=== PATIENT | male | born 1950 | race Caucasian/White ===

== ENCOUNTER 2021-03-06 15:02 | Observation (INO) | payer MEDICARE, SELFPAY ==
[2021-03-06] VITALS (7 sets, daily range): BP systolic 169–196; BP diastolic 97–126; PULSE 58–65; RESP 15–30; TEMP 36.4–37; O2SAT 95–100; BMI 23.5; BMI 21.7
--- NOTE | 2021-03-06 15:05 | EKG12_ITS ---
Test Reason : CP Blood Pressure : / mmHG Vent. Rate : 059 BPM Atrial Rate : 059 BPM P-R Int : 166 ms QRS Dur : 090 ms QT Int : 448 ms P-R-T Axes : 064 -53 -28 degrees QTc Int : 443 ms Sinus bradycardia with occasional Premature ventricular complexes Left anterior fascicular block Nonspecific T wave abnormality Abnormal ECG Confirmed by JAYDE SEWELL, TAMIKO ([id number]), editor map MICHAEL EDOUARD ([id number]) on 03/09/2021 9:21:53 AM Referred By: JENA Confirmed By:NATE DONOHUE MD
[2021-03-06] MEDS: Aspirin 81 MG TAB.CHEW 324 MG PO (15:13)
--- NOTE | 2021-03-06 15:15 | RAD_ITS ---
STUDY: X-RAY CHEST REASON FOR EXAM: Male, 70 years old. Chest pain TECHNIQUE: Single AP portable view of the chest. COMPARISON: None. FINDINGS: EKG electrodes are seen. Hyperinflation. The lungs are clear. There is no demonstrated pleural abnormality. Normal size heart. Normal mediastinum and amanda. Normal visualized pulmonary arteries. There is atherosclerotic tortuosity of the aortic arch and descending thoracic aorta. There are diffuse degenerative changes of the visualized thoracic spine. Dextroscoliosis. There is degenerative osteoarthritis of the bilateral shoulders. There is no demonstrated abnormality of the visualized soft tissue structures of the upper abdomen. RAD/Chest 1 View (Portable) IMPRESSION: Hyperinflation. The lungs are clear. Electronically Signed: Juan Mike MD at 15:34 EDT , Service support ,
[2021-03-06 15:30] LABS: Absolute Lymphocyte Count 3.39 X10^3/uL (0.83-4.51); Absolute Neutrophil Count 2.6 X10^3/uL (2.0-7.7); Basophil# 0.06 X10^3/uL; Basophil% 0.8 % (0-1); Eosinophil# 0.44 X10^3/uL; Eosinophils% 6.1 % (0-5); Hematocrit 41.6 % (40-54); Hemoglobin 13.6 g/dL (13.0-16.5); Lymphocyte # 3.39 X10^3/ul (0.83-4.51); Lymphocyte % 47.2 % (19-41); Mean Corp Hgb Conc 32.7 g/dL (32-36); Mean Corpuscular Hgb 30.2 pg (27.0-32.0); Mean Corpuscular Volume 92.4 fL (80-94); Monocyte# 0.73 X10^3/uL; Monocyte% 10.2 % (0-10); NRBC Flagged by Analyzer 0 % (0-5); Neutrophil # 2.55 X10^3/uL (2.7-7.7); Neutrophil % 35.6 % (47-70); Platelet Count 268 K/mm3 (150-450); RBC Distribution Width CV 14.1 % (11.6-14.6); RBC Distribution Width SD 48.1 fl (35.1-43.9); White Blood Count 7.2 K/mm3 (4.4-11.0)
[2021-03-06 15:51] LABS: Anion Gap 6 (5-15); BUN 17 mg/dL (7-18); BUN/Creat Ratio 24.5 RATIO (10-20); Calcium,Total 9.3 mg/dL (8.5-10.1); Chloride 105 mmol/L (98-107); Creatinine, Serum 0.69 mg/dL (0.70-1.30); EST Glomerular Filtration Rate 119 mL/min (>60); Est Glom Filt Rate - Afr Amer 144 mL/min (>60); Estimated Creatinine Clearance 60.26 ml/min; Glucose 95 mg/dL (74-106); Potassium 3.8 mmol/L (3.5-5.1); Sodium Level 138 mmol/L (136-145); Troponin-I HS 9.1 pg/mL (3.0-78.5)
--- NOTE | 2021-03-06 16:30 | EX.ED.DYSGE1 ---
HPI History of Present Illness Chief Complaint: Chest Pain Narrative Narrative: 70-year-old male presenting with epigastric pain which has been constant for 3 days. Patient states is worse with drinking and eating food. He feels like it is in his epigastric region and radiates up into his throat. Patient denies any medical problems. He has no history of GERD that he relates in the past. Patient has not had fever, chills. He denies chest pain or shortness of breath. He states he has been taking a lot of aspirin because he is scared it was his heart. He denies any cardiac issues. Patient states he is on no medications at home and is otherwise healthy [facility] Medical History COPD (chronic obstructive pulmonary disease) Allergy/AdvReac Type Severity Reaction Status Date / Time No Known Allergies Allergy Verified 03/06/21 15:07 Social History Smoking Status: Former smoker ROS ROS ED Constitutional Constitutional ED: Denies chills or fever(s) Eyes Eyes: Denies blurry vision or change in vision ENT ENT ED: Denies rhinorrhea or sore throat Cardiovascular Cardiovascular: Denies chest pain or palpitations Respiratory/Chest Respiratory/Chest: Denies cough, dyspnea or sputum Gastrointestinal Gastrointestinal: Reports other Details: Epigastric pain ; Denies diarrhea, nausea or vomiting Genitourinary Genitourinary ED: Denies dysuria Musculoskeletal Musculoskeletal: Denies arthralgias or myalgias Integumentary Denies rash Neurologic Neurologic: Denies headache(s) or paresthesias Psychiatric Psychiatric: Denies anxiety or depression EXAM Physical Exam Const Vital Signs: 03/06/21 15:03 03/06/21 15:07 Temperature 97.6 F L Temperature Source Oral Pulse Rate 58 L Respiratory Rate 22 H Blood Pressure 169/126 H Blood Pressure Mean 140 Pulse Ox 100 100 Oxygen Delivery Method Room Air Room Air Negative for well nourished General Appearance ED: NAD HEENT Reports moist mucous membranes trauma Eyes PERRL and EOMs intact bilaterally General Eye ED: Negative for pale conjunctiva or scleral icterus Chest Wall inspection of chest normal and palpation of chest normal Resp normal respiratory effort and clear to auscultation bilaterally Cardio regular rate and regular rhythm GI Palpation: tender Neuro oriented x3 and CN's II-XII intact bilaterally Sensorium / Orientation: alert Psych mental status grossly normal Skin no rashes or lesions noted and no wounds MDM MDM MDM Narrative Medical decision making narrative: Patient presenting with 3 days of epigastric pain. He has no chest pain. He denies any cardiac history. He states that his pain is worse with eating and drinking and he describes dyspepsia. His EKG is sinus rhythm with a ventricular rate of 59 bpm with occasional PVCs on my interpretation. Chest x-ray on my interpretation shows no acute cardiopulmonary process and the radiologist does agree. Given the patient has had 3 days of the symptoms with a negative troponin at 9.1 I do not believe he needs a delta troponin. Patient will be given a GI cocktail to see if this helps his symptoms. Patient did have GI cocktail but states it came back up. He denies nausea but states he does have difficulty swallowing it when he hit his stomach. He request something for pain. I did order him morphine and Zofran. Patient will be signed out to incoming ED physician for follow-up to see if he is improved. If he is not improving he may need imaging done. This was discussed with incoming ED physician. Impression: 1. Epigastric pain Lab Data Attestation: I reviewed the patient's lab results. Labs: Laboratory Results - last 24 hr 03/06/21 03/06/21 03/06/21 14:50 14:50 14:50 WBC 7.2 RBC 4.50 L Hgb 13.6 Hct 41.6 MCV 92.4 MCH 30.2 MCHC 32.7 RDW Std Deviation 48.1 H RDW Coeff of Emiliano 14.1 Plt Count 268 MPV 9.0 Immature Gran % (Auto) 0.100 Neut % (Auto) 35.6 L Lymph % (Auto) 47.2 H [place] % (Auto) 10.2 H Eos % (Auto) 6.1 H Baso % (Auto) 0.8 Absolute Neuts (auto) 2.6 Absolute Lymphs (auto) 3.39 Nucleated RBC % 0 Sodium 138 Potassium 3.8 Chloride 105 Carbon Dioxide 27.0 Anion Gap 6 BUN 17 Creatinine 0.69 L Estim Creat Clear Calc 60.26 Est GFR (MDRD) Af Amer 144 Est GFR (MDRD) Non-Af 119 BUN/Creatinine Ratio 24.5 H Glucose 95 Calcium 9.3 Total Bilirubin 0.70 Direct Bilirubin 0.22 AST 31 ALT 39 Alkaline Phosphatase 119 H Troponin I High Sens 9.1 Total Protein 8.0 Albumin 3.8 Globulin 4.2 Lipase 03/06/21 14:50 WBC RBC Hgb Hct MCV MCH MCHC RDW Std Deviation RDW Coeff of Emiliano Plt Count MPV Immature Gran % (Auto) Neut % (Auto) Lymph % (Auto) [place] % (Auto) Eos % (Auto) Baso % (Auto) Absolute Neuts (auto) Absolute Lymphs (auto) Nucleated RBC % Sodium Potassium Chloride Carbon Dioxide Anion Gap BUN Creatinine Estim Creat Clear Calc Est GFR (MDRD) Af Amer Est GFR (MDRD) Non-Af BUN/Creatinine Ratio Glucose Calcium Total Bilirubin Direct Bilirubin AST ALT Alkaline Phosphatase Troponin I High Sens Total Protein Albumin Globulin Lipase 81 Radiography Diagnostic Testing: Radiology Impression Chest X-Ray 03/06/21 15:15 IMPRESSION: Hyperinflation. The lungs are clear. Electronically Signed: Juan Mike MD at 15:34 EDT , Service support , Discharge Plan Triage Chief Complaint: Chest Pain ED Provider: Fan King Dx/Rx/DC Orders Instructions: ED Epigastric Pain Uncertain Cause Primary Care Provider: Care Physician,No Primary Referrals: Nory Treviño MD [STAFF PHYSICIAN] - As soon as possible Care Physician,No Primary [Primary Care Provider] - Disposition Disposition: Home, Self Care
[2021-03-06] MEDS: Mag Hydrox/Al Hydrox/Simeth 30 ML UDC PO (16:40)
[2021-03-06 17:09] LABS: Lipase 81 U/L (73-393)
[2021-03-06 17:29] LABS: AST(SGOT) 31 U/L (15-37); Alanine Aminotransfer ALT/SGPT 39 U/L (16-61); Albumin, Serum 3.8 g/dL (3.2-5.0); Alkaline Phosphatase 119 U/L (45-117); Bilirubin, Direct 0.22 mg/dL (0.00-0.30); Globulin 4.2 g/dL (2.2-4.2)
[2021-03-06] MEDS: Ondansetron 4 MG/2 ML Vial IV (18:21)
[2021-03-06] MEDS: Morphine 4 MG/ML Syringe IV (18:21)
--- NOTE | 2021-03-06 19:09 | CT_ITS ---
STUDY: CT CHEST, ABDOMEN T PELVIS WITH CONTRAST REASON FOR EXAM: Male, 70 years old. Epigastric pain, difficulty swallowing, into back RADIATION DOSAGE (If Supplied By Facility): CTDIvol = ( 10.23 ) mGy, DLP = ( 1062.41 ) mGycm TECHNIQUE: Transaxial imaging was performed following intravenous administration of Oral and amp; IV Gastrografin and amp; 100mL Isovue-300. Individualized dose optimization techniques were used for this CT. COMPARISON: No relevant priors. FINDINGS: CHEST The lungs are normal. There is no demonstrated pleural abnormality. Cardiac and calcific coronary artery disease. Ascending aorta measures 4.2 cm. Normal mediastinum. Normal hilar regions. Normal unenhanced pulmonary arteries. Normal aorta arch and descending thoracic aorta. Normal osseous structures. Multiple simple hepatic cysts. ABDOMEN The visualized lung bases are unremarkable. The visualized portions of the heart are within normal limits. Multiple simple hepatic cysts measuring up to 13 mm. Normal gallbladder and extrahepatic biliary system. Normal spleen. Normal pancreas. Normal bilateral adrenal glands. Normal right kidney. Normal left kidney. Normal visualized stomach. Multiple air-fluid levels throughout the small and large bowel. Normal colon. The appendix is visualized and appears normal. Outside plaque along the aorta and its branches. Normal inferior vena cava. Normal retroperitoneum. Normal abdominal wall. Moderate scoliosis. Moderate spondylosis. PELVIS Normal urinary bladder. Normal visualized small intestine. Normal visualized colon. There is no pelvic fluid. There is no pelvic lymphadenopathy or mass lesion. Normal visualized pelvic arteries. Normal abdominal wall. Normal osseous structures. 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 Cardiomegaly and coronary artery disease. Ileus. Electronically Signed: Slava Garrison MD at 21:47 EDT , Service support ,
--- NOTE | 2021-03-06 23:00 | HP.PCM.HOS_ITS ---
HPI - General HPI Narrative JACKELIN MAYFIELD, is a 70 M with history of chronic smoking possible COPD came to ER for back pain/chest pain for 3 days. This started in the upper back, intrascapular space, then epigastric region and he feels sometimes food getting stuck in the mid chest near the spine, sometimes radiation to the right throa t/jaw. Sometimes he also feels the pain cuts of the wind, and short of breath. He feels short of breath on lying down feeling of could not breathe in supine position. The pain is persistent and constant, first-time, never happened before. He never had stress test or cardiac cath, PFT, EGD or colonoscopy. The patient is new to our system therefore never had EKG before. Twelve-lead EKG shows s inus bradycardia at 59, with occasional PVCs, LAFB, nonspecific ST-T changes. CTA chest and abdomen was done in ER and shows a incidental finding of ascending aorta 4.2 cm aneurysm. ER physician discussed with the cardiology Dr. Jones, it seems incidental finding not related with his current chest pain. Normal mediastinum, hilar region. Lungs normal. Blood pressure is elevated 196/105, heart rate 61/min. First troponin negative. Allergy to milligram IV 1 dose given. His mother had coronary artery disease at the age of 65 and her sister had COPD. The patient is a chronic smoker, smokes 2 pack/day since teenage, states he quit 3 days ago [facility] Medical History COPD (chronic obstructive pulmonary disease) Home Medications ipratropium-albuterol 1 ml INHALATION 4X/DAY PRN PRN 03/06/21 [History Last Taken Unknown] Allergy/AdvReac Type Severity Reaction Status Date / Time No Known Allergies Allergy Verified 03/06/21 15:07 Family History (Updated 03/06/21 @ 23:[address] Anand Pérez MD) Mother CAD (coronary artery disease) Social History Smoking Status: Former smoker ROS ROS Narrative Constitutional: Reports fatigue and weakness HEENT: Reports systems reviewed and no addt'l complaints, except as documented Respiratory/Chest: As mentioned in HPI Gastrointestinal: No nausea, vomiting. Possible dysphagia. Denies coffee ground emesis, hematemesis or vomiting Genitourinary: Denies burning urination or new urinary tract symptoms Musculoskeletal: Reports joint pain and limited range of motion Neurologic: Denies seizure-like activity skin: No ulcer. No rash Endocrinology: Reports systems reviewed and no addt'l complaints, except as documented Hematologic/Lymphatic: Reports systems reviewed and no addt'l complaints, except as documented Rest 12 ROS are negative except as mentioned in HPI Vital Signs Vital Signs Vital Signs: 03/06/21 15:03 03/06/21 15:07 03/06/21 18:47 Temperature 97.6 F L Temperature Source Oral Pulse Rate 58 L 61 Respiratory Rate 22 H 16 Blood Pressure 169/126 H 176/97 H Blood Pressure Mean 140 123 Pulse Ox 100 100 100 Oxygen Delivery Method Room Air Room Air Room Air 03/06/21 20:18 03/06/21 22:10 Temperature Temperature Source Pulse Rate 65 58 L Respiratory Rate 15 20 H Blood Pressure 190/98 H 184/97 H Blood Pressure Mean 128 126 Pulse Ox 95 Oxygen Delivery Method Room Air Weight Weight: 145 lb 8.081 oz Body Mass Index (BMI) 23.5 Physical Exam Narrative General: Alert, Oriented x3, Cooperative HEENT: Atraumatic, PERRLA, EOMI, Normocephalic Oral: No Gingival or Mucosal Lesions/ Ulcerations Neck: Supple, No JVD, Negative Carotid Bruits Lungs: Air entry diminished in bilateral lungs. Bilateral fine expiratory rhonchi present Cardiovascular: Sinus bradycardia, Normal S1, Normal S2, No murmurs Abdomen: Bowel Sounds Present, Soft, Non Tender, Non-Distended : No renal angle tenderness. No suprapubic tenderness. Extremities: No edema, Capillary Refill Less than 3 Seconds Skin: No rashes, No breakdown Musculoskeletal: No Tenderness to Palpation of Joints or Extremities Neurological: Cranial nerves II-XII grossly intact, DTR 2+/4 and Symmetrical, Neuro grossly intact Psych/Mental Status: Normal Affect, Appropriate. Results Lab / Micro Data Result Diagrams: 03/06/21 14:50 03/06/21 14:50 Labs: Laboratory Results - last 24 hr 03/06/21 14:50: WBC 7.2, RBC 4.50 L, Hgb 13.6, Hct 41.6, MCV 92.4, MCH 30.2, MCHC 32.7, RDW Std Deviation 48.1 H, RDW Coeff of Emiliano 14.1, Plt Count 268, MPV 9.0, Immature Gran % (Auto) 0.100, Neut % (Auto) 35.6 L, Lymph % (Auto) 47.2 H, [place] % (Auto) 10.2 H, Eos % (Auto) 6.1 H, Baso % (Auto) 0.8, Absolute Neuts (auto) 2.6, Absolute Lymphs (auto) 3.39, Nucleated RBC % 0 03/06/21 14:50: Sodium 138, Potassium 3.8, Chloride 105, Carbon Dioxide 27.0, Anion Gap 6, BUN 17, Creatinine 0.69 L, Estim Creat Clear Calc 60.26, Est GFR (MDRD) Af Amer 144, Est GFR (MDRD) Non-Af 119, BUN/Creatinine Ratio 24.5 H, Glucose 95, Calcium 9.3, Troponin I High Sens 9.1 03/06/21 14:50: Total Bilirubin 0.70, Direct Bilirubin 0.22, AST 31, ALT 39, Alkaline Phosphatase 119 H, Total Protein 8.0, Albumin 3.8, Globulin 4.2 03/06/21 14:50: Lipase 81 Radiology Impression Chest X-Ray 03/06/21 15:15 IMPRESSION: Hyperinflation. The lungs are clear. 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 Cardiomegaly and coronary artery disease. Ileus. Electronically Signed: Slava Garrison MD at 21:47 EDT , Service support , Assessment & Plan Assessment/Plan (1) Atypical chest pain: PLAN: This is a 70-year-old question) admitted for atypical chest pain. 1. Atypical chest pain, rule out acute coronary syndrome: Patient is being admitted to PCU. Serial high-sensitivity troponins. Repeat twelve-lead EKG. Treadmill myocardial nuclear stress test tomorrow a.m. Protonix 40 g IV empirically and then oral daily. EGD as an outpatient recommended. 2. Incidental ascending aortic aneurysm 4.2 cm: ER physician discussed with chair trimmer and seems incidental finding. Need outpatient further surveillance. Patient denies history of bicuspid aortic valve or congenital heart disease. 3. Chronic smoker possible COPD/chronic bronchitis: Do not seem in exacerbation. DuoNeb every 4 hourly as needed. 4. Uncontrolled essential hypertension: Patient states he ran out of antihypertensive medication, does not remember the name. Started on losartan 50 mg daily. Labetalol seems to an ideal antihypertensive medication for hypertension with ascending aortic aneurysm but controlled in view of bradycardia. Coreg 6.25 mg twice daily ordered with holding parameter. Hydralazine 10 mg IV every 4 hourly as needed for systolic blood pressure more than 180 mmHg. VTE prophylaxis: Lovenox 40 mg subcu daily. Living will/advanced directive/end of life care: Patient does not have living w ill or advanced directive or designated power of assistant city attorney for health. Next of kin is his brother, Mr. Bryon Tovar. After discussion of benefits/risks procedures involved with full code, DNR CC arrest and DNR CC, the patient opted for DNR-CC Arrest with no intubation Patient does not want artificial life support including intubation, tube feed, ventilator and/chest compression, central venous catheter, vasopressor and DC shock if needed Total time spent in [id number] encounter in discussion of advanced directive 16 minutes. Charges/Coding Visit Charges OBSV E&M: 30307 Initial observation care L3 Procedures Hospitalists Procedures: 07221 Advncd Care Plan 30 Min
[2021-03-06 23:28] LABS: Troponin-I HS 12.8 pg/mL (3.0-78.5)
[2021-03-06] MEDS: hydrALAZINE 20 MG/ML Vial 10 MG IV (23:33)
[2021-03-06 23:34] LABS: Magnesium 2.1 mg/dL (1.6-2.6)
[2021-03-07] VITALS (9 sets, daily range): BP systolic 148–165; BP diastolic 77–103; PULSE 56–71; RESP 16–26; TEMP 36.3–36.6; O2SAT 95–99
--- NOTE | 2021-03-07 00:03 | EKG12_ITS ---
Test Reason : CP ADMISSION Blood Pressure : / mmHG Vent. Rate : 060 BPM Atrial Rate : 060 BPM P-R Int : 168 ms QRS Dur : 096 ms QT Int : 458 ms P-R-T Axes : 046 -55 011 degrees QTc Int : 458 ms Sinus rhythm with Premature supraventricular complexes Left anterior fascicular block Abnormal ECG Confirmed by NICOLE SEWELL, NATHEN ([id number]), content editor MICHAEL EDOUARD ([id number]) on 03/08/2021 10:45:27 AM Referred By: CECILIA Confirmed By:NATHEN RIVERA MD
[2021-03-07 00:05] LABS: BNP,B-Type NATRIURETIC PEPTIDE 31.2 pg/mL (0-100)
[2021-03-07] MEDS: ALPRAZolam 0.25 MG Tablet PO (00:20)
[2021-03-07] MEDS: Enoxaparin 40 MG/0.4 ML Syringe SC (00:20)
[2021-03-07] MEDS: Losartan Potassium 50 MG Tablet PO ×2 (00:20→06:13)
[2021-03-07] MEDS: Atorvastatin Calcium 40 MG Tablet PO (00:20)
[2021-03-07] MEDS: Morphine 2 MG/ML Syringe IV (01:01)
[2021-03-07] MEDS: 0.9% Saline Lock 10 ML Syringe IV ×2 (01:01→14:13)
[2021-03-07 02:15] LABS: Hematocrit 42.7 % (40-54); Hemoglobin 14.1 g/dL (13.0-16.5); Mean Corpuscular Volume 93.8 fL (80-94); Mean Platelet Vol. 8.5 fl (6.2-12.0); Platelet Count 249 K/mm3 (150-450); RBC Distribution Width SD 48.8 fl (35.1-43.9); Red Blood Count 4.55 M/mm3 (4.6-6.2); White Blood Count 6.7 K/mm3 (4.4-11.0)
[2021-03-07] MEDS: oxyCODONE 5 MG Tablet PO ×2 (02:18→11:04)
[2021-03-07 02:33] LABS: Troponin-I HS 15.5 pg/mL (3.0-78.5)
[2021-03-07 02:55] LABS: Anion Gap 8 (5-15); BUN 13 mg/dL (7-18); BUN/Creat Ratio 21.5 RATIO (10-20); Calcium,Total 9.3 mg/dL (8.5-10.1); Chloride 103 mmol/L (98-107); Cholesterol 163 mg/dL (200); Creatinine, Serum 0.61 mg/dL (0.70-1.30); EST Glomerular Filtration Rate 139 mL/min (>60); Est Glom Filt Rate - Afr Amer 168 mL/min (>60); Estimated Creatinine Clearance 57.83 ml/min; Glucose 77 mg/dL (74-106); High Density Lipoprotein 53 mg/dL; Potassium 3.5 mmol/L (3.5-5.1); Sodium Level 136 mmol/L (136-145); Triglycerides 41 mg/dL; Very Low Density Lipoprotein 8 mg/dL (5-40)
[2021-03-07] MEDS: Aspirin E.C. 81 MG Tablet PO (06:13)
--- NOTE | 2021-03-07 09:52 | STRESSREP ---
Stress Test Report Date: 03-07-2021 Procedure: Exercise tolerance test/imaging study Indications: Chest pain; ascending aortic aneurysm Consent: Per the patient Procedure: The patient exercised on a Pepito protocol for 4 minutes and 30 completing Stage I and 1 minute and 30 seconds of Stage II achieving a peak heart rate of 120 bpm (81% predicted maximal heart rate) with a peak blood pressure 140/82 mmHg and a peak MET capacity of 6 METs. The baseline ECG demonstrated sinus rhythm; poor R wave progression; nonspecific ST/T wave abnormality. The peak exercise ECG demonstrated significant somatic/motion artifact with no obvious ECG changes. There was an occasional PAC pretest, during exercise, and recovery and a rare PVC during recovery. The functional capacity was considered decreased. There was complaint of chest/back discomfort at the 2-minute aleks and subsequently shortness of breath/fatigue with spontaneous resolution in recovery. The examination was discontinued secondary to chest discomfort, dyspnea, and fatigue. Impression: 1. Technically adequate (percent predicted maximal heart rate greater than 85%) exercise tolerance test 2. Peak exercise ECG with significant somatic/motion artifact with no obvious ECG changes 3. There was an occasional PAC pretest, during exercise, and recovery and a rare PVC during recovery 4. Nuclear images pending Myocardial perfusion imaging study: Technique: The patient was injected with 12.0 mCi of technetium 99m Cardiolite and subsequently rest SPECT Cardiolite nuclear imaging was obtained in the horizontal long, vertical long, and short axis views. The patient exercised on a Pepito protocol for 4 minutes and 30 completing Stage I and 1 minute and 30 seconds of Stage II achieving a peak heart rate of 120 bpm (81% predicted maximal heart rate) with a peak blood pressure 140/82 mmHg and a peak MET capacity of 6 METs. The patient was injected with 36 point mCi of technetium 99m Cardiolite and subsequently stress SPECT Cardiolite nuclear imaging was obtained in the horizontal long, vertical long, and short axis views. A gated Cardiolite study at peak stress was obtained. Interpretation: Rest and stress SPECT Cardiolite nuclear imaging status post realignment, normalization, and attenuation correction, demonstrates relative uniform tracer uptake and myocardial perfusion appearing within normal limits. There is end systolic thickening and brightening. The gated Cardiolite study demonstrates myocardial thickening and inward wall motion. The reported LVEF is 59%. Impression: 1. Rest and stress SPECT Cardiolite nuclear imaging demonstrate relative uniform tracer uptake and myocardial perfusion appearing within normal limits. 2. The gated Cardiolite study reports an LVEF of 59%. This note was generated with [employer] software. It may contain incorrect words, spelling, and punctuation that were not noted in checking the note before signing.
[2021-03-07] MEDS: Carvedilol 6.25 MG Tablet PO (10:58)
[2021-03-07] MEDS: Pantoprazole Sodium 40 MG Tablet PO (10:58)
[2021-03-07] MEDS: Senna/Docusate Sodium 1 Tablet 2 TABLET PO (11:04)
[2021-03-07] MEDS: Ondansetron 4 MG/2 ML Vial IV (14:13)
--- NOTE | 2021-03-07 14:35 | DS.PCM_ITS ---
Providers Date of Admission: 03/06/21 Primary Care Physician: No Primary Care Phys Reason For Visit: CHEST PAIN Diagnosis Discharge Diagnosis (1) Atypical chest pain: Status: Acute Code(s): R07.89 - Other chest pain Medications at Discharge Home Medications ipratropium-albuterol 1 ml INHALATION 4X/DAY PRN PRN 03/06/21 acetaminophen [Tylenol] 650 mg PO Q6H PRN PRN #30 tab 03/07/21 carvedilol 6.25 mg PO BID #60 tab 03/07/21 losartan 50 mg PO DAILY #30 tab 03/07/21 pantoprazole 40 mg PO DAILY #30 tab 03/07/21 Hospital Course Operations None Procedures Stress test Summary of Care Provided Minutes Spent on Discharge: 40 Hospital Course: Patient is a 70 y/o male with a PMH as outlined who was admitted via the ED on 03/06/2021 with a complaint of chest pain which radiated to his back for 3 days prior to admission. Pain was also epigastric and radiated to his upper back. He also sometimes felt he was having food stuck in his chest with eating and also said pain was worsened by drinking water. EKG showed normal sinus bradycardia with heart rate of [address] of the chest done was negative for PE but showed an incidental finding of an ascending aortic aneurysm which was 4.2cm in diameter. He was admitted to manage for chest pain to rule out ACS. Troponins x3 were negative and patient had a stress test on 03/07/2021 which was negative for any evidence of ischemia. Pain was also reproducible with palpation so there was a component of musculoskeletal pain. Patient was counseled that his pain could also be related to a GI problem because he had food stuck in his chest with eating and also had pain with drinking water. He was therefore started on pantoprazole and was referred to gastroenterology on outpatient basis for an EGD as part of his work-up. Patient also to be referred to cardiology for follow-up of his ascending aortic aneurysm. Patient was started on losartan and Coreg as he had not been compliant with his blood pressure medications and said he had run out. However he could not remember the name of his blood pressure medication. He is follow- up with his primary care doctor and follow-up with cardiology as mentioned as well as gastroenterology. Patient was seen and examined prior to discharge. He had no complaints and felt well. Review of systems otherwise negative. Labs and vitals reviewed. Her m edication reviewed and reconciled. Physical Exam Const alert, oriented x3 and no apparent distress General Appearance: cooperative and comfortable HEENT normocephalic, head/scalp atraumatic, hearing grossly normal bilaterally and moist oral mucous membranes Eyes PERRL, EOMs intact bilaterally and conjunctivae normal Neck no lymphadenopathy Resp normal respiratory effort, no retractions, no use of accessory muscles and clear to auscultation bilaterally Cardio regular rate, regular rhythm, S1 normal heart sound, S2 normal heart sound and no murmurs Cardio Narrative: left sided chest pain reproducible with palpation GI normal to inspection, nondistended, normoactive bowel sounds, soft to palpation, non-tender, non-distended and hepatosplenomegaly Extremity normal to inspection, full ROM and no clubbing, cyanosis or edema Skin no rashes or lesions noted and no wounds Neuro oriented x3, CN's II-XII intact bilaterally and moves all extremities Sensorium / Orientation: awake and alert Psych affect normal Weight / BMI Weight Weight: 135 lb Body Mass Index (BMI) 21.7 ABG / Lab / Microbiology Data Result Diagrams: 03/07/21 02:08 03/07/21 02:08 Laboratory: Laboratory Results - last 24 hr 03/06/21 14:50: WBC 7.2, RBC 4.50 L, Hgb 13.6, Hct 41.6, MCV 92.4, MCH 30.2, MCHC 32.7, RDW Std Deviation 48.1 H, RDW Coeff of Emiliano 14.1, Plt Count 268, MPV 9.0, Immature Gran % (Auto) 0.100, Neut % (Auto) 35.6 L, Lymph % (Auto) 47.2 H, Dawson % (Auto) 10.2 H, Eos % (Auto) 6.1 H, Baso % (Auto) 0.8, Absolute Neuts (auto) 2.6, Absolute Lymphs (auto) 3.39, Nucleated RBC % 0 03/06/21 14:50: Sodium 138, Potassium 3.8, Chloride 105, Carbon Dioxide 27.0, Anion Gap 6, BUN 17, Creatinine 0.69 L, Estim Creat Clear Calc 60.26, Est GFR (MDRD) Af Amer 144, Est GFR (MDRD) Non-Af 119, BUN/Creatinine Ratio 24.5 H, Glucose 95, Calcium 9.3, Troponin I High Sens 9.1 03/06/21 14:50: Total Bilirubin 0.70, Direct Bilirubin 0.22, AST 31, ALT 39, Alkaline Phosphatase 119 H, Total Protein 8.0, Albumin 3.8, Globulin 4.2 03/06/21 14:50: Lipase 81 03/06/21 14:50: B-Natriuretic Peptide 31.2 03/06/21 22:37: Troponin I High Sens 12.8 03/06/21 22:37: Magnesium 2.1 03/07/21 02:08: WBC 6.7, RBC 4.55 L, Hgb 14.1, Hct 42.7, MCV 93.8, MCH 31.0, MCHC 33.0, RDW Std Deviation 48.8 H, RDW Coeff of Emiliano 14.0, Plt Count 249, MPV 8.5 03/07/21 02:08: Sodium 136, Potassium 3.5, Chloride 103, Carbon Dioxide 25.0, Anion Gap 8, BUN 13, Creatinine 0.61 L, Estim Creat Clear Calc 57.83, Est GFR (MDRD) Af Amer 168, Est GFR (MDRD) Non-Af 139, BUN/Creatinine Ratio 21.5 H, Glucose 77, Calcium 9.3, Triglycerides 41, Cholesterol 163, LDL Cholesterol 102, VLDL Cholesterol 8, HDL Cholesterol 53, TSH 3.20 03/07/21 02:08: Troponin I High Sens 15.5 Radiography Diagnostic Testing: Radiology Impression Chest X-Ray 03/06/21 15:15 IMPRESSION: Hyperinflation. The lungs are clear. 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 Cardiomegaly and coronary artery disease. Ileus. Electronically Signed: Slava Garrison MD at 21:47 EDT , Service support , D/C Instructions Discharge Diet: Low fat / Low cholesterol Discharge Activity: Return to Normal Activity Call your doctor if you observe: Fever of 101 or Higher, Shortness of breath, Dizziness, Chest pain, Increased palpitations (irregular heartbeat) and Uncontrolled pain Meaningful Use Info Meaningful Use Diagnoses (Choose all that apply): None applicable Discharge Plan Admission Admit Date/Time: 03/06/21 23:16 Primary Reason for Your Visit: chest pain Attending Provider: Lulu Garcia Primary Care Provider: Care Physician,No Primary Instructions Patient Instructions: Aneurysm Abdominal Aortic, ED Chest Pain, Noncardiac, ED Epigastric Pain Uncertain Cause Discharge Orders/Prescriptions Prescriptions: New losartan 50 mg Tablet 50 mg PO DAILY Qty: 30 RF: 1 acetaminophen [Tylenol] 325 mg Tablet 650 mg PO Q6H PRN PRN (Reason: Pain Score 1-10/Temp > 100.7 F) Qty: 30 RF: 0 carvedilol 6.25 mg Tablet 6.25 mg PO BID Qty: 60 RF: 1 pantoprazole 40 mg Tablet,Delayed Release (Dr/Ec) 40 mg PO DAILY Qty: 30 RF: 1 Continued ipratropium-albuterol 0.5 mg-3 mg(2.5 mg base)/3 mL solution for nebulization 1 ml inhalation 4X/DAY PRN PRN (Reason: Bronchodilation) RF: 0 Referrals / Follow Up: Nory Treviño MD [STAFF PHYSICIAN] - As soon as possible Jose Giordano MD [STAFF PHYSICIAN] - Within 1 Month (follow up for thoracic aneurysm) Fletcher Olson MD [NON-STAFF] - Within 1 Month Care Physician,No Primary [Primary Care Provider] - Disposition Disposition (needs filled in before D/C Order can be placed): Home, Self Care Charges/Coding Visit Charges OBSV E&M: 97804 Observation care discharge
--- NOTE | 2021-03-07 14:59 | PCM.DC ---
Discharge Instructions Diet Discharge Diet: Low fat / Low cholesterol Dressing / Incision Call your doctor if you observe: Fever of 101 or Higher, Shortness of breath, Dizziness, Chest pain, Increased palpitations (irregular heartbeat) and Uncontrolled pain Follow Up Care Test Results: Test results from this visit will be discussed in further detail at your follow-up appointment, if applicable. Discharge Plan Admission Admit Date/Time: 03/06/21 23:16 Primary Reason for Your Visit: chest pain Attending Provider: Lulu Garcia Primary Care Provider: Care Physician,No Primary Instructions Patient Instructions: Aneurysm Abdominal Aortic, ED Chest Pain, Noncardiac, ED Epigastric Pain Uncertain Cause Discharge Orders/Prescriptions Prescriptions: New losartan 50 mg Tablet 50 mg PO DAILY Qty: 30 RF: 1 acetaminophen [Tylenol] 325 mg Tablet 650 mg PO Q6H PRN PRN (Reason: Pain Score 1-10/Temp > 100.7 F) Qty: 30 RF: 0 carvedilol 6.25 mg Tablet 6.25 mg PO BID Qty: 60 RF: 1 pantoprazole 40 mg Tablet,Delayed Release (Dr/Ec) 40 mg PO DAILY Qty: 30 RF: 1 Continued ipratropium-albuterol 0.5 mg-3 mg(2.5 mg base)/3 mL solution for nebulization 1 ml inhalation 4X/DAY PRN PRN (Reason: Bronchodilation) RF: 0 Referrals / Follow Up: Nory Treviño MD [STAFF PHYSICIAN] - As soon as possible Jose Giordano MD [STAFF PHYSICIAN] - Within 1 Month (follow up for thoracic aneurysm) Fletcher Olson MD [NON-STAFF] - Within 1 Month Care Physician,No Primary [Primary Care Provider] - Disposition Disposition (needs filled in before D/C Order can be placed): Home, Self Care
--- NOTE | 2021-03-07 15:33 | PHA.DC.MR ---
Pharmacy Service has performed discharge medication reconciliation for this patient. The patient's discharge medication list was reviewed for discrepancies and discrepancies were resolved. Patient discharged before I was able to retirement plan counselor. Rx not sent electronically, printed. Home Medications ipratropium-albuterol 1 ml INHALATION 4X/DAY PRN PRN 03/06/21 acetaminophen [Tylenol] 650 mg PO Q6H PRN PRN #30 tab 03/07/21 carvedilol 6.25 mg PO BID #60 tab 03/07/21 losartan 50 mg PO DAILY #30 tab 03/07/21 pantoprazole 40 mg PO DAILY #30 tab 03/07/21
== END 2021-03-07 14:44 | disposition home or self-care (01) ==
LOC: ED 19:08 → PCU 03-07 00:05
PROVIDERS: Student in an Organized Health Care Education/Training Program; Admitting Provider Internal Medicine; Emergency Provider Emergency Medicine; Visit Provider Student in an Organized Health Care Education/Training Program
DX: R07.89 Other chest pain (principal); R00.1 Bradycardia, unspecified; J44.9 Chronic obstructive pulmonary disease, unspecified; I44.4 Left anterior fascicular block; Z87.891 Personal history of nicotine dependence; I10 Essential (primary) hypertension; I71.4 Abdominal aortic aneurysm, without rupture; Z91.14 Patient's other noncompliance with medication regimen; R06.02 Shortness of breath
CPT/HCPCS: 36415; 71045; 71260; 74177; 78452; 80048; 80061; 80076; 83690; 83735; 83880; 84443; 84484; 85025; 85027; 93005; 93017; 96365; 96372; 96375; 96376; 99218; 99251; 99285; A9500; Q9967; A4216; G0378; G0463; J2405